=== PATIENT | female | born 1990 | race Caucasian/White ===

== ENCOUNTER 2019-06-21 12:18 | Emergency (ER) | payer SELFPAY ==
[~2019-06-21] VITALS: Ht 160 cm; Wt 99.8 kg
[2019-06-21 12:18] VITALS: BP_SYST 120
[2019-06-21] MEDS ORDERED: KETOROLAC TROMETHAMINE 60 MG/2 ML VIAL IM ONE (13:15)
[2019-06-21] MEDS ORDERED: cefTRIAXone 1 GM in LIDOCAINE 1%, 20 ML MDV 2.1 ML IM ONE (13:15)
== END 2019-06-21 13:45 | disposition home or self-care (01) ==
LOC: SED 12:18
DX: K08.89 Other specified disorders of teeth and supporting structures (principal); R03.0 Elevated blood-pressure reading, without diagnosis of hypertension
CPT/HCPCS: 81025; 96372; 99284; J0696; J1885; J2001